=== PATIENT | female | born 1990 | race Caucasian/White ===

== ENCOUNTER 2019-11-10 10:00 | Outpatient (RCR) | payer BC, SELFPAY | END 2019-12-09 14:38 | disposition home or self-care (01) | LOC: PT.CARL 10:00 | PROVIDERS: Referring Provider Nurse Practitioner; Visit Provider Nurse Practitioner | DX: M54.2 Cervicalgia (principal) | CPT/HCPCS: 97035; 97110; 97163 ==

== ENCOUNTER 2023-08-17 15:00 | Emergency (ER) | payer OTHER, SELFPAY ==
[2023-08-17 15:10] VITALS: BP 133/80; PULSE 93; RESP 22; TEMP 36.8; O2SAT 98; BMI 30.8
--- NOTE | 2023-08-17 15:15 | EXP.UTC ---
Discharge Plan Disposition Patient Disposition: Home, Self-Care Condition: Good Prescriptions Prescriptions: New prednisone [prednisone] 20 mg tablet 20 mg PO BID 5 Days Qty: 10 0RF sulfamethoxazole-trimethoprim [Bactrim DS] 800-160 mg Tablet 1 tab PO Q12H Qty: 20 0RF Referrals Follow up/Referrals: Edwige Osborne APRN [Primary Care Provider] - See instructions Clinical Impressions Clinical Impression: Cellulitis of foot, Accidental spider bite Instructions Patient Instructions: DI for Spider Bites Discharge ED Provider: Altagracia Osborne [facility] [place] H[place] General Stated complaint: RT SPIDER BITE AT 9 AM ON . Time Seen by Provider: 08/17/23 15:17 History of Present Illness Provider Complaint: Patient was bitten by spider while putting on her shoe this am. Bitten on top of right foot. Area is red, swollen and painful. Location: right and lower extremity Relieving factors: none Exacerbating factors: none Associated symptoms: denies other symptoms Treatments prior to arrival: none Related Data Previous Rx's Medication Instructions Recorded prednisone 20 mg tablet 20 mg PO BID 5 days #10 tabs 08/17/23 sulfamethoxazole 800 1 tab PO Q12H #20 tabs 08/17/23 mg-trimethoprim 160 mg tablet (Bactrim DS) Allergies Allergy/AdvReac Type Severity Reaction Status Date / Time No Known Allergies Allergy Verified 07/03/22 16:12 [facility] Disclaimer: The information contained in this section may have been updated after the patient was seen, as this information can be updated by other users. Medical History (Updated 08/17/23 @ 15:31 by NUBIA Casanova) Breast pain Surgical History (Updated 07/03/22 @ 16:26 by Trixie Zaidi CMA) H/O oral surgery Social History (Updated 07/03/22 @ 16:26 by Trixie Zaidi CMA) Smoking Status: Current every day smoker alcohol intake: never substance use type: denies use current occupational status: employed Travel in the last 8 weeks: None number of children: 2 ROS Obtained: Yes All systems reviewed & no additional complaints except as documented Integumentary/Breasts Skin/Breast: Reports as per HPI, Reports redness and Reports skin pain Physical Exam General General appearance: alert and in no apparent distress Head Head exam: atraumatic, normocephalic and normal inspection Eye Eye exam: Present normal appearance, PERRL and EOMI ENT ENT exam: Present normal exam, normal oropharynx, mucous membranes moist, TM's normal bilaterally and normal external ear exam Neck Neck exam: Present normal inspection, full ROM and trachea midline; Absent meningismus or lymphadenopathy Chest Chest inspection: Present normal inspection and symmetric chest wall rise; Absent tenderness Respiratory Respiratory exam: Present normal lung sounds bilaterally; Absent respiratory distress Cardiovascular Cardiovascular exam: Present regular rate and normal rhythm; Absent JVD Abdominal Exam Abdominal exam: Present soft and normal bowel sounds; Absent distention, tenderness or guarding Extremities Exam Extremities exam: Present normal inspection, full ROM and normal capillary refill; Absent calf tenderness Back Exam Back exam: Present normal inspection; Absent tenderness Neurological Exam Neurological exam: Present alert and oriented X3 Psychiatric Psychiatric exam: Present normal affect and normal mood Skin Skin exam: Present warm, dry, intact, normal color and other (spider bite top of right foot just proximal to great toe) Lymphatic Lymphatic Findings: no adenopathy Medical Decision Making Elie Inquiry Pt receiving controlled substance: No
[2023-08-17 15:31] VITALS: BP 133/80; PULSE 93; RESP 22; TEMP 36.8; O2SAT 98
== END 2023-08-17 15:36 | disposition home or self-care (01) ==
PROVIDERS: Emergency Provider Physician Assistant; PCP Nurse Practitioner
DX: L03.115 Cellulitis of right lower limb (principal); T63.301A Toxic effect of unspecified spider venom, accidental (unintentional), initial encounter; F17.210 Nicotine dependence, cigarettes, uncomplicated
CPT/HCPCS: 99204; 99212; G0463

== ENCOUNTER 2023-12-05 13:36 | Emergency (ER) | payer OTHER, SELFPAY ==
[2023-12-05 13:40] VITALS: BP 139/72; PULSE 100; RESP 18; TEMP 36.7; O2SAT 99; BMI 30.1
--- NOTE | 2023-12-05 13:51 | ED_ITS ---
Discharge Plan Disposition Patient Disposition: Home, Self-Care Condition: Good Prescriptions Prescriptions: No Action azithromycin 250 mg tablet 250 mg PO DAILY penicillin V potassium 500 mg tablet 500 mg PO TID Referrals Follow up/Referrals: Edwige Osborne APRN [Primary Care Provider] - See instructions Activity Restrictions/Add. Instructions Additional Instructions/Restrictions: Take your prescribed oral steriods tomorrow Over the counter Benadryl as directed on package Follow up with your Family Doctor Make sure to inform your pharmacy and your Family Doctor of your reaction to Penicillin Clinical Impressions Clinical Impression: Allergic reaction Qualifiers: Encounter type: initial encounter Qualified Code(s): T78.40XA - Allergy, unspecified, initial encounter Instructions Patient Instructions: DI for General Allergic Reactions, DI for Adverse Drug Reaction -- Allergic Discharge ED Provider: Sneha Sheldon [facility] General Stated complaint: allergic reaction, rash all over Mode of Arrival: Ambulatory Source of Information: Patient Limitations: No Limitations Time Seen by Provider: 12/05/23 13:52 Description of Symptoms (Recalled from Triage Doc. by RN): Pt's symptoms are she took PCN 30 mins ago and she started with rash and itching. HEENT Symptoms (Recalled from RN notes): No Resp Symptoms (Recalled from RN notes): No Skin Symptoms (Recalled from RN notes): Yes MS Symptoms (Recalled from RN notes): No Functional Status (Recalled from RN notes): n/a History of Present Illness Provider Complaint: Patient states that she was prescribed PCN back the first of the month but she hasnt taken it and just started it earlier today and about 30 min after taking it broke out in rash all over her body States that she was prescribed Steriods over the weekend but hasnt been taking them States when she broke out in rash she immediately took 25mg of Benadryl and came in to get checked Related Data Home Medications Medication Instructions Recorded Confirmed azithromycin 250 mg tablet 250 mg PO DAILY 12/05/23 12/05/23 penicillin V potassium 500 mg 500 mg PO TID abx 12/05/23 12/05/23 tablet Allergies Allergy/AdvReac Type Severity Reaction Status Date / Time Penicillins Allergy Rash Verified 12/05/23 13:48 Worker's Comp Is this a Worker's Comp case?: [facility]: The information contained in this section may have been updated after the patient was seen, as this information can be updated by other users. Medical History (Updated 12/05/23 @ 14:13 by Sneha Sheldon APRN) Breast pain Surgical History H/O oral surgery Social History Smoking Status: Current every day smoker alcohol intake: never substance use type: denies use current occupational status: employed Travel in the last 8 weeks: None number of children: 2 ROS Obtained: Yes All systems reviewed & no additional complaints except as documented and Yes Systems reviewed as appropriate & no additional complaints except as documented Constitutional Constitutional: Reports system reviewed and no additional complaints, except as documented and Reports as per HPI Cardiovascular Cardiovascular: Reports system reviewed and no additional complaints, except as documented and Reports as per HPI Respiratory Respiratory: Reports system reviewed and no additional complaints, except as documented and Reports as per HPI Gastrointestinal Gastrointestingal: Reports system reviewed and no additional complaints, except as documented and as per HPI Integumentary/Breasts Skin/Breast: Reports system reviewed and no additional complaints, except as documented, Reports as per HPI, Reports pruritus and Reports rash Physical Exam General General appearance: alert and in no apparent distress ENT ENT exam: Present mucous membranes moist Respiratory Respiratory exam: Present normal lung sounds bilaterally; Absent respiratory distress or wheezes Cardiovascular Cardiovascular exam: Present regular rate, normal rhythm and normal heart sounds Neurological Exam Neurological exam: Present alert, oriented X3 and normal gait Skin Skin exam: Present rash Expanded Skin Exam Description: Present urticarial Medical Decision Making Elie Inquiry Pt receiving controlled substance: No Elie was queried for this patient: No Vital Signs: 12/05/23 13:40 Temperature 98.0 F Temperature Source Oral Pulse Rate [Right Radial] 100 H Respiratory Rate 18 Blood Pressure [Right Arm] 139/72 Blood Pressure Mean [Right Arm] 94 Blood Pressure Source [Right Arm] Automatic Cuff Blood Pressure Position [Right Arm] Sitting 02 Sat by Pulse Oximetry 99 Oxygen Delivery Method Room Air Medical Decision Narrative: Rash appears to be improving almost gone on face and arms
[2023-12-05] MEDS: diphenhydrAMINE 50MG/ML VIAL 25 MG IM (14:09)
[2023-12-05] MEDS: FAMOTIDINE 20MG TABLET 20 MG PO (14:09)
[2023-12-05] MEDS: METHYLPREDNISOLONE SOD SUCC 125MG VIAL 125 MG IM (14:09)
[2023-12-05 14:49] VITALS: BP 139/72; PULSE 100; RESP 18; TEMP 36.7; O2SAT 99
== END 2023-12-05 14:49 | disposition home or self-care (01) ==
PROVIDERS: Emergency Provider Nurse Practitioner; PCP Nurse Practitioner
DX: T36.95XA Adverse effect of unspecified systemic antibiotic, initial encounter; F17.210 Nicotine dependence, cigarettes, uncomplicated; L50.0 Allergic urticaria
CPT/HCPCS: 96372; 99212; 99214; G0463